=== PATIENT | female | born 1950 | race Two or more races ===

== ENCOUNTER 2022-12-15 20:15 | Emergency (ER) | payer OTHER ==
[~2022-12-15] VITALS: Ht 167.6 cm; Wt 59.0 kg
[2022-12-15] MEDS ORDERED: ZOCOR40 MG (20:47)
[2022-12-15] MEDS ORDERED: LOSARTAN POTASS50 MG (20:47)
[2022-12-15] MEDS ORDERED: LEVOXYL25 MCG (20:48)
[2022-12-15 23:29] LABS: CALCIUM 9.4 mg/dL (8.5-10.1); CREATININE SERUM 1.02 mg/dL (0.55-1.02); GFR 52.97; POTASSIUM 4.32 mEq/L (3.5-5.1)
[2022-12-15 23:31] LABS: HEMOGLOBIN 13.8 g/dL (12.0-15.00); MEAN CELL VOLUME 89.2 fL (80.00-100.00); MEAN CORPUSCULAR HEMOGLOBIN 30.9 pg (27.00-32.0); MEAN CORPUSCULAR HGB CONC 34.6 g/dl (32.0-36.0); PLATELET COUNT 295 K/uL (150-450); RED BLOOD COUNT 4.48 M/uL (4.00-6.00); RED CELL DISTRIBUTION WIDTH 14.1 % (11.5-14.5)
== END 2022-12-16 06:05 | disposition home or self-care (01) ==
LOC: ER 20:15
PROVIDERS: General Practice
DX: N20.1 Calculus of ureter (principal); N20.0 Calculus of kidney; I10 Essential (primary) hypertension; Z87.442 Personal history of urinary calculi; E03.9 Hypothyroidism, unspecified; Z88.0 Allergy status to penicillin; E78.49 Other hyperlipidemia
CPT/HCPCS: 36415; 74240; 76770; 96365; 96366; 99284; J1885; J2405; J7030